=== PATIENT | male | born 1985 | race Caucasian/White ===

== ENCOUNTER 2023-03-02 12:27 | Emergency (ER) | payer OTHER, SELFPAY ==
[2023-03-02 12:34] VITALS: BP 165/106; PULSE 79; RESP 18; TEMP 36.5; O2SAT 98; BMI 23.7
--- NOTE | 2023-03-02 12:42 | PC.NURSE ---
PT STATES DIAGNOSED WITH SCABIES 3 MONTHS AGO WAS SEEN AT AN URGENT CARE AND PUT ON SOMETHING FOR SCABIES PT STATES THE SCABIES FROM BODY HAS GONE BUT STILL HAS THEM IN THE GROIN AREA.
--- NOTE | 2023-03-02 13:24 | ED.MALEGU1 ---
HPI - Male Genitourinary General Chief complaint: Urogenital-Male Stated complaint: RASH Time Seen by Provider: 03/02/23 13:15 Source: patient Mode of arrival: walk-in Limitations: no limitations History of Present Illness HPI Narrative: patient is a 37-year-old male who presents to the emergency department for the evaluation of two lesions the right side of the penis. He states these lesions of the present for the last two months. He was recently treated for scabies and states that the lesions persist, he has no pain, redness, itching or drainage to these lesions. He has not had sexual contact in several months. He has no other focal medical complaints. he denies any changes to his urination. Related Data Allergies Allergy/AdvReac Type Severity Reaction Status Date / Time Penicillins Allergy Unknown Verified 03/02/23 12:34 Review of Systems ROS Constitutional Denies: fever or chills Cardiovascular Denies: chest pain Respiratory Denies: shortness of breath or cough Gastrointestinal Denies: nausea or vomiting Musculoskeletal Denies: back pain Integumentary/Breast Reports: rash Hematologic/Lymphatic Denies: easy bruising Exam Narrative Exam Narrative: Gen.: Awake, alert, in no distress Head: Normocephalic, atraumatic ENT: Moist mucous membranes Respiratory: No respiratory distress Extremities: Moves extremities equally genital: Two small, minimally raised skin lesions on the right lateral aspect of the penis. Nontender, no surrounding erythema, no open wounds or drainage. No vesicles. No lesions of the urethral meatus. Neda Luther RN at bedside throughout the duration of the exam Psych: Normal mood and affect Neuro: No focal neuro deficit Skin: Warm, dry, intact Constitutional Vital Signs, click to edit/add: Last Vital Signs Temp 97.7 F 03/02/23 12:34 Pulse 79 03/02/23 12:34 Resp 18 03/02/23 12:34 BP 165/106 H 03/02/23 12:34 Pulse Ox 98 03/02/23 12:34 O2 Del Method Room Air 03/02/23 12:34 Course Vital Signs Vital signs: Vital Signs Temperature 97.7 F 03/02/23 12:34 Pulse Rate 79 03/02/23 12:34 Respiratory Rate 18 03/02/23 12:34 Blood Pressure 165/106 H 03/02/23 12:34 Pulse Oximetry 98 03/02/23 12:34 Oxygen Delivery Method Room Air 03/02/23 12:34 Temperature 97.7 F 03/02/23 12:34 Pulse Rate 79 03/02/23 12:34 Respiratory Rate 18 03/02/23 12:34 Blood Pressure 165/106 H 03/02/23 12:34 Pulse Oximetry 98 03/02/23 12:34 Oxygen Delivery Method Room Air 03/02/23 12:34 MDM - Male Genitourinary MDM Narrative Medical decision making narrative: these lesions are consistent with small skin tags, although we cannot rule out genital warts without a biopsy, patient is referred to dermatology. At this time the do not appear consistent with condyloma and appear more likely to be skin tags, no evidence of genital herpes. Follow-up with dermatology and return to the Emergency Room if symptoms change or worsen Medical Records Attestation: I reviewed the patient's medical records. Discharge Plan Discharge Chief Complaint: Urogenital-Male Clinical Impression: Skin tag, Penile lesion Patient Disposition: Home, Self-Care Time of Disposition Decision: 13:22 Condition: Good Mode of Transportation: Private Vehicle Additional Instructions: Follow up with dermatology Stand Alone Forms: Portal Instructions Referrals: Physician,Non-Staff, [Primary Care Provider] - 1 week GENARO ODOM [Physician] - 1 week Discharge Date/Time: 03/02/23 13:31
== END 2023-03-02 13:31 | disposition home or self-care (01) ==
PROVIDERS: Emergency Provider Emergency Medicine Emergency Medical Services
DX: L91.8 Other hypertrophic disorders of the skin (principal)
CPT/HCPCS: 99284